=== PATIENT | female | born 1975 | race Caucasian/White ===

== ENCOUNTER 2022-02-10 23:16 | Emergency (ER) | payer MEDICAID ==
[~2022-02-10] VITALS: Ht 152.4 cm; Wt 55.0 kg
[2022-02-11] MEDS ORDERED: IBUP-2029 MT (01:32)
[2022-02-11] MEDS ORDERED: SULF1TAB48 MT (01:32)
[2022-02-11] MEDS ORDERED: CEPH500T MT (01:32)
[2022-02-11] MEDS ORDERED: TETANUS, DIPHTHERIA, PERTUSSIS VAC/PF 0.5ML (>10YR OLD) IM ONE (01:45)
[2022-02-11 01:50] VITALS: BP 125/89
== END 2022-02-11 02:00 | disposition home or self-care (01) ==
LOC: ER 23:16
DX: L02.413 Cutaneous abscess of right upper limb (principal); Z79.899 Other long term (current) drug therapy
CPT/HCPCS: 90471; 90715; 99283